=== PATIENT | female | born 1995 | race Hispanic/Latino ===

== ENCOUNTER 2018-03-02 20:09 | Emergency (ER) | payer BC ==
[2018-03-02 20:48] LABS: #Basophils 0.1 thou/uL (0.0-0.2); #Eosinphils 0.1 thou/uL (0.0-0.7); #Lymphocytes 1.9 thou/uL (1.20-3.40); #Monocytes 0.3 thou/uL (0.11-0.59); #Neutrophils 3.6 thou/uL (1.40-6.50); %Basophils 1.1 % (0.0-1.0); %Eosinophils 2.5 % (0.0-10.0); %Monocytes 5.1 % (0.0-10.0); %Neutrophils 60.3 % (42.0-75.0); Hemoglobin 13.6 g/dL (12.0-16.0); Mean Corpuscular HGB CONC 35.1 g/dL (32.0-36.0); Mean Corpuscular Hemoglobin 30.9 pg (27.0-31.0); Mean Corpuscular Volume 88.1 fL (78.0-98.0); Mean Platelet Volume 8.2 fL (7.4-10.4); Platelet Count 239 thou/uL (130-400); RBC Distribution Width 11.3 % (11.5-14.5); Red Blood Cell (RBC) Count 4.41 mill/uL (4.20-5.40)
[2018-03-02 21:08] LABS: Bilirubin Negative (Negative); Blood, Urine Negative (Negative); Clarity CLEAR (Clear); Glucose, Urine (Dipstick) Negative (Negative); Leukocyte Small (Negative); Nitrite Negative (Negative); Protein, Urine (Dipstick) Negative (Neg-Trace); Specific Gravity, Urine 1.009 (1.002-1.036)
[2018-03-02 21:10] LABS: Bacteria/HPF None Seen HPF (None Seen); Hyaline Casts/LPF 0-3 HYALINE CAST LPF (0-3 Hyaline); Pathc Cast-AUWi Flag 0.29 (0-2.49); RBC/HPF None Seen HPF (0-3); Squamous Epithelial 0-3 HPF (0-3); WBC/HPF 0-3 HPF (0-3)
[2018-03-02 21:10] LABS: ALT (SGPT) 11 U/L (8-55); AST (SGOT) 13 U/L (5-34); Albumin 4.2 g/dL (3.5-5.0); Alkaline Phosphatase 77 U/L (40-150); Anion Gap 15 mmol/L (10-20); BUN (Urea Nitrogen) 8 mg/dL (7.0-18.7); Bilirubin, Total 0.2 mg/dL (0.2-1.2); Calc. Creatinine Clearance 0 mL/min (70-130); Calcium 9.7 mg/dL (7.8-10.44); Carbon Dioxide 25 mmol/L (22-29); Chloride 103 mmol/L (98-107); Estimated GFR-MDRD Greater than 90; Globulin 3.3 g/dL (2.4-3.5); Glucose 103 mg/dL (70-105); Potassium 3.5 mmol/L (3.5-5.1); Protein, Total 7.5 g/dL (6.0-8.3); Sodium 139 mmol/L (136-145)
--- NOTE | 2018-03-02 22:59 | ULT ---
PELVIC ULTRASOUND: 03/02/2018 HISTORY: Patient with pelvic cramping and positive . TECHNIQUE: Multiple transabdominal sonographic images of the pelvis are obtained. FINDINGS: The uterus measures 9.6 cm x 6 cm x 7.1 cm. There is a fluid collection seen in the endometrial ellis l, which contains both a pole and a yolk sac. The mean crown-rump length is 2.63 cm, correspon ding to a gestational age by ultrasound of 9 weeks 3 days, with an JANET of 10/02/2018. Gestational ag e by last menstrual period is 9 weeks 5 days. Cardiac Doppler does demonstrate heart tones wit h a heart rate of 169 beats per minute. No subchorionic hemorrhage is appreciated on this exam . The ovaries demonstrate a normal sonographic appearance bilaterally with peripheral follicles seen in each ovary. The right ovary measures 3.1 cm x 1.6 cm x 3.1 cm, with the left ovary measuring 2.9 cm x 1.2 cm x 2.3 cm. Doppler evaluation with spectral analysis and color-flow evaluation of each ovary demonstrates arteri al flow in each ovary. A small amount of free fluid is seen in the cul-de-sac. IMPRESSION: 1. Single intrauterine gestation with heart tones documented. The estimated gestational age b y measurement of the crown-rump length is 9 weeks 3 days with an estimated date of delivery of 2018. 2. Small amount of free fluid in the pelvis, likely physiologic in origin. POS: [facility]
== END 2018-03-02 22:40 | disposition home or self-care (01) ==
LOC: ERS 20:09
DX: O99.89 Other specified diseases and conditions complicating pregnancy, childbirth and the puerperium (principal); R10.9 Unspecified abdominal pain; Z3A.09 9 weeks gestation of pregnancy
CPT/HCPCS: 36415; 76856; 80053; 81003; 81015; 84702; 85025

== ENCOUNTER 2018-05-02 07:07 | Outpatient (CLI) | payer BC ==
--- NOTE | 2018-05-02 08:35 | ULT ---
OBSTERICAL ULTRASOUND: INDICATION: Size and dates. COMPARISON: Prior exam dated 03/02/2018. FINDINGS: There was a single live intrauterine gestation in breech presentation. Cardiac activity is noted at 147 b.p.m. The placenta is anterior in location without evidence of previa. JOESPH appears within norm al limits. The biparietal diameter is 4.16 cm giving an estimated gestational age (59th percentile). The head circumference measured 15.09 cm giving an estimated gestational age of 18 weeks and 1 day (2 8th percentile). The abdominal circumference measured 13.2 cm giving an estimated age of 8 weeks and 5 days (57t h percentile). The femoral length measured 2.46 cm giving an estimated gestational age of 17 weeks and 3 days (12th percentile). Estimated weight is 225 gm (28th percentile). The visualized head appears within normal limits. The stomach, cord insertion, and bladder andrés ear within normal limits. The spine, 4-chamber heart, and 3-vessel cord were not well interrogated. The lips and nose were not well interrogated. The kidneys were partially seen. IMPRESSION: 1. Single live intrauterine gestation with size and dates as above. The average gestational age by ultrasound based on the biometrics is 18 weeks 2 days with estimated due date 10/01/2018. 2. Some limitations to the survey. There was limited visualization of the 4-chamber heart, ki dneys, spine, nose, and 3-vessel cord. A followup examination in 1-2 weeks for full completion of th e survey is recommended. POS: [facility]
== END 2018-05-02 07:08 | disposition home or self-care (01) ==
LOC: SCSULT 07:07
PROVIDERS: ATTEND Family Medicine
DX: Z34.92 Encounter for supervision of normal pregnancy, unspecified, second trimester (principal); Z3A.18 18 weeks gestation of pregnancy
CPT/HCPCS: 76805

== ENCOUNTER 2018-09-23 19:30 | Inpatient (IN) | payer BC ==
[2018-09-24] MEDS ORDERED: Misoprostol 200 MCG TAB PR PRN (01:24)
[2018-09-24] MEDS ORDERED: HYDROcodone/Acetaminophen 5/325 mg Tablet PO PRN ×2 (01:24→12:46)
[2018-09-24] MEDS ORDERED: hydrALAZINE 20 MG/ML VIAL SLOW IVP PRN ×2 (01:24→12:46)
[2018-09-24] MEDS ORDERED: NS / Oxytocin 40 units/1000ml 1,000 ML IV PRN (01:24)
[2018-09-24] MEDS ORDERED: NS w/ Oxytocin 10 units 500 ML IV SCH (01:24)
[2018-09-24] MEDS ORDERED: Butorphanol Tartrate 1 MG/ML VIAL SLOW IVP PRN (01:24)
[2018-09-24] MEDS ORDERED: Ibuprofen 800 MG TAB PO PRN (01:24)
[2018-09-24] MEDS ORDERED: Ondansetron PF 4 MG/2 ML Vial IVP PRN ×2 (01:24→09:22)
[2018-09-24] MEDS ORDERED: Lidocaine 1% (PF) 30 ML VIAL SC PRN (01:24)
[2018-09-24] MEDS ORDERED: Promethazine HCl 25 MG/ML VIAL IM PRN ×2 (01:24→09:22)
[2018-09-24 02:20] VITALS: BMI 25.5
[2018-09-24 02:55] LABS: Hemoglobin 11.1 g/dL (12.0-16.0); Mean Corpuscular HGB CONC 35.8 g/dL (32.0-36.0); Mean Corpuscular Hemoglobin 32.4 pg (27.0-31.0); Mean Corpuscular Volume 90.5 fL (78.0-98.0); Mean Platelet Volume 8.4 fL (7.4-10.4); Platelet Count 202 thou/uL (130-400); Red Blood Cell (RBC) Count 3.43 mill/uL (4.20-5.40); White Blood Cell (WBC) Count 7.6 thou/uL (4.8-10.8)
[2018-09-24] MEDS: Misoprostol 100 MCG TAB VAG SCH ×2 (02:55→16:14)
[2018-09-24] MEDS: Lactated Ringer's 1,000 ML IV SCH ×2 (03:01→16:14)
[2018-09-24 03:32] LABS: HBSAg Index 0.36 S/CO (0-0.99); Hep B Surf Ag Non-Reactive S/CO (NonReactive)
[2018-09-24 05:32] LABS: Syphilis Antibody Nonreactive (Nonreactive); Syphilis Antibody Index 0.02 S/CO (<1.00 Non-Reactive)
[2018-09-24] MEDS ORDERED: Fentanyl 4 mcg/Bup 0.1% Cadd 100 ML ONE (08:22)
--- NOTE | 2018-09-24 08:42 | HP ---
HISTORY OF PRESENT ILLNESS: This is a 22-year-old female, G2, P1, at 39 weeks gestation with an EDC of 09/30/2018. Being admitted for an elective induction. course has been uncomplicated. The patient has been having frequent contractions over the past week. Her cervix was noted to be 80% effaced, 2 cm dilated, but posterior. Her last was delivered at 37 to 38 weeks gestation. PAST MEDICAL HISTORY: Unremarkable. ALLERGIES: NONE. PAST SURGICAL HISTORY: Spontaneous vaginal delivery x1. FAMILY HISTORY: Unremarkable. SOCIAL HISTORY: She is . She has 1 daughter. She is a nonsmoker, nondrinker. REVIEW OF SYSTEMS: As above. PHYSICAL EXAMINATION: VITAL SIGNS: Blood pressure 110/70. GENERAL: No acute distress. HEENT: Clear. HEART: Clear. LUNGS: Clear. ABDOMEN: Gravid. Fundal height 34 cm. The cervix 2 cm, 80% posterior. LABORATORY DATA: GBS negative. 1 hour GTT 133. Thyroid normal. RPR nonreactive. Urine culture negative. A positive blood type. Rubella immune. Pap smear LGSIL. Hepatitis B negative. HIV negative. ASSESSMENT: 1. 39 week intrauterine . 2. Early labor. PLAN: 1. Routine L and D orders. 2. Pitocin augmentation. Job ID: [id number]
[2018-09-24] MEDS ORDERED: diphenhydrAMINE 50 MG/ML VIAL IVP PRN (09:22)
[2018-09-24] MEDS ORDERED: ePHEDrine/0.9% NaCl/PF SYRINGE 50 mg/10 ml SLOW IVP PRN (09:22)
[2018-09-24] MEDS ORDERED: Naloxone HCl 0.4 mg/ml Vial IVP PRN ×2 (09:22)
[2018-09-24] MEDS ORDERED: Acetaminophen 325 MG TAB PO PRN (09:22)
[2018-09-24] MEDS ORDERED: Lactated Ringer's 500 ML IV PRN (09:22)
[2018-09-24] MEDS ORDERED: Communication Order-Pharmacy FS SCH (09:30)
[2018-09-24] MEDS ORDERED: Fentanyl 4 mcg/Bupivacaine 0.1% Cassette 100 ML EPIDURAL SCH (09:30)
[2018-09-24] MEDS ORDERED: Bupivacaine 0.25% HCL 30 ML VIAL ONE (11:11)
[2018-09-24] MEDS ORDERED: Carboprost 250 MCG/ML AMP ONE (11:30)
[2018-09-24] MEDS ORDERED: Misoprostol 200 MCG TAB ONE (11:30)
[2018-09-24] MEDS ORDERED: Methylergonovine 0.2 MG/ML VIAL ONE (11:30)
--- NOTE | 2018-09-24 12:35 | DN ---
DATE OF PROCEDURE: 09/24/2018 PREOPERATIVE DIAGNOSIS: Term . POSTOPERATIVE DIAGNOSES: Term and cord around the neck x2. PROCEDURE PERFORMED: Spontaneous vaginal delivery. DESCRIPTION OF PROCEDURE: This 22-year-old Latin female, G2, P1, taken to the delivery room completing pushing. Prepped and draped sterilely. Delivered a baby boy with Apgars of 8 at 1 minute and 9 at 5 minutes. Baby did breathe and cry vigorously upon delivery. Cord around the neck x2. No lacerations present. Delivered the placenta, spontaneously intact. Estimated blood loss was 350 mL. Mother and baby did well. There was slight bleeding following delivery and 800 of Cytotec rectally was given. But at this time, the patient's blood loss is well controlled. Job ID: [id number]
[2018-09-24] MEDS ORDERED: Milk Of Magnesia 30 ML UDCUP PO PRN (12:46)
[2018-09-24] MEDS ORDERED: Adacel (T-DAP) 0.5 ML SYRINGE IM ONE (12:46)
[2018-09-24] MEDS ORDERED: Bisacodyl 10 MG SUPP PR PRN (12:46)
[2018-09-24] MEDS: NS / Oxytocin 40 units/1000ml 1,000 ML IV SCH ×2 (13:32→16:38)
[2018-09-24] MEDS: Ferrous Sulfate 325 MG TAB PO SCH (16:13)
[2018-09-24] MEDS: Ibuprofen 800 MG TAB PO PRN (21:33)
[2018-09-24] MEDS: Docusate Calcium (SURFAK) 240 MG CAP PO SCH (21:33)
[2018-09-25 04:28] LABS: Hemoglobin 10.2 g/dL (12.0-16.0)
[2018-09-25] MEDS: Ibuprofen 800 MG TAB PO PRN (04:53)
[2018-09-25] MEDS ORDERED: Prenatal Vitamin 1 TAB PO SCH (09:00)
[2018-09-25] MEDS: Docusate Calcium (SURFAK) 240 MG CAP PO SCH (09:32)
[2018-09-25] MEDS: Ferrous Sulfate 325 MG TAB PO SCH (09:33)
[2018-09-25 12:05] VITALS: BP 117/77; TEMP 97.7
== END 2018-09-25 16:25 | disposition home or self-care (01) | DRG 807 ==
LOC: L&D 09-24 01:09 → 3SW 09-24 17:05
PROVIDERS: ADMIT Family Medicine; ATTEND Family Medicine
PROC: 10E0XZZ Delivery of Products of Conception, External Approach (ICD-10-PCS; principal; 2018-09-24)
PROC: 3E0P7VZ Introduction of Hormone into Female Reproductive, Via Natural or Artificial Opening (ICD-10-PCS; 2018-09-24)
DX: O69.81X0 Labor and delivery complicated by cord around neck, without compression, not applicable or unspecified (principal); Z37.0 Single live birth; Z3A.39 39 weeks gestation of pregnancy
CPT/HCPCS: 36415; 51702; 85014; 85018; 85027; 86780; 86850; 86900; 86901; 87340; 90715; J2001; J2210; J2590; J3490; S0020